=== PATIENT | female | born 1990 | race African-American/Black ===

== ENCOUNTER 2016-06-03 20:59 | Emergency (ER) | payer SELFPAY ==
[~2016-06-03 20:59] MED LIST: HYDR-3533 PO
[2016-06-03 21:02] VITALS: BP 128/75; PULSE 85; RESP 14; TEMP 98.4; O2SAT 96
--- NOTE | 2016-06-04 03:01 | PD ---
HPI Chief Complaint: GI Complaint Time Seen by Provider: 03:01 Travel History International Travel<30 days: No Contact w/Intl Traveler<30days: No Traveled to known affect area: No History of Present Illness HPI 25-year-old female came to the emergency room with history of nausea and vomiting. She was seen in the emergency room couple days ago for right foot injury. She was discharged home with a walking boot for a possible fracture of her fifth metatarsal. She has also mentioned that the hydrocodone she was discharged home on has been taken away by her mother. She is in pain from her foot. [facility] Past Medical History Narrative Medical List of her past medical history as reviewed from the nursing note. Anemia: Yes Cardiovascular Problems: No Diminished Hearing: No Endocrine: No Gastrointestinal Disorders: No Genitourinary: No Musculoskeletal: No Neurologic: No Psychiatric: No Respiratory: No Immunizations Current: No (UNK) : 2 Para: 0 Miscarriage: 2 : 0 Ectopic : Yes (X 1) Past Surgical History Gynecologic Surgery: Yes Other Surgery: No Social History Alcohol Use: Yes (OCC) Tobacco Use: Yes (1/2 PPD) Substance Use: Yes (MARIJUANA RARE) Allergies-Medications (Allergen,Severity, Reaction): Coded Allergies: Contrast Media (Verified Adverse Reaction, Mild, Itching, 06/03/16) Itching and hives Comments List of her allergies reviewed from the long-term. Reported Meds & Prescriptions Reported Meds & Active Scripts Active Lortab (Hydrocodone-Acetaminophen) 5-325 Mg Tab 1-2 Tab PO Q6H PRN Narrative Medication List of her home medications reviewed from the nursing note. Review of Systems Except as stated in HPI: all other systems reviewed are Neg Physical Exam Narrative GENERAL: Awake, alert, no obvious distress SKIN: Warm and dry. HEAD: Atraumatic. Normocephalic. EYES: Pupils equal and round. No scleral icterus. No injection or drainage. ENT: No nasal bleeding or discharge. Mucous membranes pink and moist. NECK: Trachea midline. No JVD. CARDIOVASCULAR: Regular rate and rhythm. No murmur appreciated. RESPIRATORY: No accessory muscle use. Clear to auscultation. Breath sounds equal bilaterally. GASTROINTESTINAL: Abdomen soft, non-tender, nondistended. Hepatic and splenic margins not palpable. MUSCULOSKELETAL: Right foot cam boot. No obvious deformities. No clubbing. No cyanosis. No edema. NEUROLOGICAL: Awake and alert. No obvious cranial nerve deficits. Motor grossly within normal limits. Normal speech. PSYCHIATRIC: Appropriate mood and affect; insight and judgment normal. Data Data Last Documented VS Vital Signs Date Time Temp Pulse Resp B/P Pulse Ox O2 Delivery O2 Flow Rate FiO2 06/03/16 21:02 98.4 85 14 128/75 96 Room Air Orders Complete Blood Count With Diff (06/04/16 03:23) Comprehensive Metabolic Panel (06/04/16 03:23) Iv Access Insert/Monitor (06/04/16 03:23) Ecg Monitoring (06/04/16 03:23) Oximetry (06/04/16 03:23) Sodium Chloride 0.9% Flush (Ns Flush) (06/04/16 03:30) Ed Urine Pregnancytest Poc (06/04/16 03:23) Foot, Complete ([id number]) (06/04/16 ) Labs Laboratory Tests Test 06/04/16 06/04/16 03:36 04:14 Sodium Level 138 MEQ/L Potassium Level 3.5 MEQ/L Chloride Level 102 MEQ/L Carbon Dioxide Level 28.8 MEQ/L Anion Gap 7 MEQ/L Blood Urea Nitrogen 12 MG/DL Creatinine 0.82 MG/DL Estimat Glomerular Filtration 104 ML/MIN Rate Random Glucose 77 MG/DL Calcium Level 9.0 MG/DL Total Bilirubin 0.7 MG/DL Aspartate Amino Transf 17 U/L (AST/SGOT) Alanine Aminotransferase 23 U/L (ALT/SGPT) Alkaline Phosphatase 84 U/L Total Protein 8.1 GM/DL Albumin 3.9 GM/DL White Blood Count 12.5 TH/MM3 Red Blood Count 4.27 MIL/MM3 Hemoglobin 13.8 GM/DL Hematocrit 41.4 % Mean Corpuscular Volume 96.8 FL Mean Corpuscular Hemoglobin 32.4 PG Mean Corpuscular Hemoglobin 33.4 % Concent Red Cell Distribution Width 16.2 % Platelet Count 285 TH/MM3 Mean Platelet Volume 8.1 FL Neutrophils (%) (Auto) 70.1 % Lymphocytes (%) (Auto) 21.8 % Monocytes (%) (Auto) 7.2 % Eosinophils (%) (Auto) 0.2 % Basophils (%) (Auto) 0.7 % Neutrophils # (Auto) 8.8 TH/MM3 Lymphocytes # (Auto) 2.7 TH/MM3 Monocytes # (Auto) 0.9 TH/MM3 Eosinophils # (Auto) 0.0 TH/MM3 Basophils # (Auto) 0.1 TH/MM3 CBC Comment DIFF FINAL Differential Comment MDM Medical Decision Making Medical Screen Exam Complete: Yes Emergency Medical Condition: Yes Medical Record Reviewed: Yes Differential Diagnosis Foot fracture, acute gastritis, dehydration Narrative Course 4:45 AM blood test results are within acceptable limits. X-ray of her foot does not show a fracture. I have recommended that she can take the boot off and does not need it anymore. However patient insisted that she gets pain when she walks and it helps. I will discharge her home. Procedures EKG Prior to Arrival: No Diagnosis Primary Impression: Gastritis Qualified Code: K29.70 - Gastritis without bleeding, unspecified chronicity, unspecified gastritis type Referrals: Primary Care Physician Additional Instructions: Follow-up with your primary care. Disposition: 01 DISCHARGE HOME Condition: Stable Ryanne Lentz MD Jun 04, 2016 03:01 Disposition: 01 DISCHARGE HOME Condition: Ryanne Theodore MD Jun 04, 2016 03:01
[2016-06-04] MEDS ORDERED: SODIUM CHLORIDE 0.9% FLUSH 5 ML FLUSH IVF PRN (03:30)
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
[2016-06-04 04:14] LABS: ALKALINE PHOSPHATASE 84 U/L (45-117); TOTAL BILIRUBIN ADULT 0.7 MG/DL (0.2-1.0)
[2016-06-04 04:15] LABS: ALT (GPT) 23 U/L (10-53); ANION GAP 7 MEQ/L (5-15); AST (GOT) 17 U/L (15-37); BICARBONATE 28.8 MEQ/L (21.0-32.0); BLOOD UREA NITROGEN 12 MG/DL (7-18); CHLORIDE 102 MEQ/L (98-107); GLOMERULAR FILTRATION RATE 104 ML/MIN (>89); POTASSIUM 3.5 MEQ/L (3.5-5.1); SODIUM (NA) 138 MEQ/L (136-145)
[2016-06-04 04:31] LABS: AUTOMATED NEUTROPHIL # 8.8 TH/MM3 (1.8-7.7); BASOPHIL # 0.1 TH/MM3 (0-0.2); BASOPHIL % 0.7 % (0.0-2.0); EOSINOPHIL % 0.2 % (0.0-4.0); HEMATOCRIT 41.4 % (35.0-46.0); HEMO FLAGS DIFF FINAL; LYMPH % 21.8 % (9.0-44.0); LYMPHOCYTE # 2.7 TH/MM3 (1.0-4.8); MEAN CELL VOLUME 96.8 FL (80.0-100.0); MEAN CORPUSCULAR HEMOGLOBIN 32.4 PG (27.0-34.0); MEAN CORPUSCULAR HGB CONC 33.4 % (32.0-36.0); MONO % 7.2 % (0.0-8.0); NEUT % 70.1 % (16.0-70.0); PLATELET COUNT 285 TH/MM3 (150-450); RED BLOOD COUNT 4.27 MIL/MM3 (4.00-5.30); RED CELL DISTRIBUTION WIDTH 16.2 % (11.6-17.2); WHITE BLOOD COUNT 12.5 TH/MM3 (4.0-11.0)
== END 2016-06-04 05:15 | disposition home or self-care (01) ==
LOC: NEPC 20:59
DX: K29.70 Gastritis, unspecified, without bleeding (principal); F17.200 Nicotine dependence, unspecified, uncomplicated; Z86.2 Personal history of diseases of the blood and blood-forming organs and certain disorders involving the immune mechanism
CPT/HCPCS: 73630; 80053; 85025; 99284

== ENCOUNTER 2017-02-13 10:27 | Emergency (ER) | payer SELFPAY ==
[~2017-02-13] VITALS: Ht 167.6 cm; Wt 60.0 kg
[2017-02-13 10:31] VITALS: BP 221/117; PULSE 114; RESP 20; TEMP 98.4; O2SAT 99
[2017-02-13 10:38] VITALS: BP 180/84; PULSE 96; RESP 22; O2SAT 100
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
[2017-02-13] MEDS ORDERED: ONDANSETRON HCL 4 MG/2 ML VIAL IV PUSH ONE (10:45)
[2017-02-13] MEDS ORDERED: SODIUM CHLOR 0.9% 1000 ML INJ 1,000 ML IV ONE (10:45)
[2017-02-13] MEDS ORDERED: MORPHINE SULFATE 4 MG/ML INJ IV PUSH ONE (10:45)
[2017-02-13] MEDS ORDERED: IBUP-232 PO (11:25)
--- NOTE | 2017-02-13 12:16 | RADRPT ---
EXAM DATE/TIME: 02/13/2017 11:18 [facility] COMPARISON: No previous studies available for comparison. INDICATIONS : Pain from falling off bed. MEDICAL HISTORY : None. SURGICAL HISTORY : None. ENCOUNTER: Initial ACUITY: 1 day PAIN SCORE: 10/10 LOCATION: Right shoulder. FINDINGS: Two view examination of the right shoulder demonstrates no evidence of fracture or dislocation. The glenohumeral and acromioclavicular joints are maintained. Bony mineralization is normal. CONCLUSION: No acute disease. Otis Atkins MD on February 13, 2017 at 12:13 Board Certified Radiologist. This report was verified electronically.
[2017-02-13 14:02] VITALS: BP 155/89; PULSE 87; RESP 20; O2SAT 99
[2017-02-13 14:18] VITALS: BP 148/78
== END 2017-02-13 14:33 | disposition home or self-care (01) ==
LOC: NEPD 10:27
DX: S43.004A Unspecified dislocation of right shoulder joint, initial encounter (principal); W06.XXXA Fall from bed, initial encounter; F17.200 Nicotine dependence, unspecified, uncomplicated
CPT/HCPCS: 73030; 80307; 96361; 96374; 96375; 99284; J2270; J2405; J7030

== ENCOUNTER 2017-04-10 13:26 | Emergency (ER) | payer SELFPAY ==
[~2017-04-10] VITALS: Ht 162.6 cm; Wt 65.0 kg
[~2017-04-10 13:26] MED LIST changes: -HYDR-3533 PO; +IBUP-232 PO
[2017-04-10 13:37] VITALS: BP 126/81; PULSE 80; RESP 21; TEMP 98.4; O2SAT 99
[2017-04-10] MEDS ORDERED: IBUPROFEN 800 MG TAB PO ONE (13:45)
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
[2017-04-10] MEDS ORDERED: ACETAMINOPHEN/HYDROcodone 325 MG/5 MG TAB PO ONE (15:00)
== END 2017-04-10 17:00 | disposition home or self-care (01) ==
LOC: NEPE 13:26
DX: T74.21XA Adult sexual abuse, confirmed, initial encounter (principal); M54.5 Low back pain; Y07.9 Unspecified perpetrator of maltreatment and neglect
CPT/HCPCS: 72100; 99284